=== PATIENT | male | born 1985 | race Two or more races ===

== ENCOUNTER 2023-11-02 12:27 | Inpatient (IN) | payer MEDICAID ==
[~2023-11-02] VITALS: Ht 170.2 cm; Wt 77.3 kg
[2023-11-02 13:17] LABS: BASOPHILS % (AUTO) 0.2 % (0.0-2.0); EOSINOPHILS % (AUTO) 0.3 % (1.0-6.0); HEMATOCRIT 43.4 % (41-53); LYMPHOCYTES # (AUTO) 1.5 K/uL (1.0-4.8); LYMPHOCYTES % (AUTO) 19.4 % (22.0-44.0); MEAN CORPUSCULAR HEMOGLOBIN 32.3 pg (26.0-34.0); MEAN CORPUSCULAR HGB CONC 34.5 G/dL (31.0-37.0); MEAN CORPUSCULAR VOLUME 94 fL (80-100); MONOCYTES # (AUTO) 0.6 K/uL (0.1-1.0); MONOCYTES % (AUTO) 7.4 % (2.0-9.0); NEUTROPHILS # (AUTO) 5.6 K/uL (1.8-7.7); NEUTROPHILS % (AUTO) 72.7 % (40.0-70.0); PLATELET COUNT (AUTO) 117 K/uL (150-450); RED BLOOD CELL COUNT(AUTO) 4.64 MIL/uL (4.50-5.90); RED CELL DISTRIBUTION WIDTH 13.4 % (11.5-14.5); WHITE BLOOD COUNT (AUTO) 7.7 K/uL (4.5-11.0)
[2023-11-02 13:27] LABS: ALCOHOL, BLOOD (SERUM) < 3 mg/dL (0-10)
[2023-11-02 13:33] LABS: ALANINE AMINOTRANSFERASE 102 U/L (12-78); ALBUMIN 4.6 g/dL (3.4-5.0); ALKALINE PHOSPHATASE 119 U/L (46-116); ANION GAP 9 mmol/L (8-16); ASPARTATE AMINOTRANSFERASE 69 U/L (15-37); BILIRUBIN,TOTAL 1.5 mg/dL (0.1-1.0); CALCIUM, TOTAL 9.2 mg/dL (8.8-10.5); CARBON DIOXIDE 32 mmol/L (22-29); CHLORIDE 90 mmol/L (98-107); GLOMERULAR FILTR. RATE CALC > 60 mL/min (>60); GLUCOSE,RANDOM 114 mg/dL (70-110); SODIUM SERUM 131 mmol/L (136-145); UREA NITROGEN, BLOOD 6 mg/dL (7-18)
[2023-11-02 13:34] LABS: POTASSIUM 2.8 mmol/L (3.5-5.1)
[2023-11-02] MEDS: POTASSIUM CHL 10 MEQ/WATER 50 ML IV SCH (13:56)
[2023-11-02] MEDS: POTASSIUM CHLORIDE 10% 40 MEQ/30 ML LIQUID UDCUP PO ONE (13:56)
[2023-11-02] MEDS: MAGNESIUM SULFATE 2 GM/WATER 50 ML IV ONE (14:25)
[2023-11-02] MEDS: ONDANSETRON HCL 4 MG/2 ML VIAL IVP ONE (14:25)
[2023-11-02] MEDS: ChlordiazePOXIDE HCL 25 MG CAPSULE PO ONE (14:47)
[2023-11-02] MEDS: PROCHLORPERAZINE EDISYLATE 5 MG/ML 2 ML VIAL IVP ONE (14:47)
[2023-11-02] MEDS: RINGERS SOLUTION,LACTATED 1,000 ML IV ONE (14:47)
[2023-11-02] MEDS ORDERED: MAGNESIUM HYDROXIDE SUSPENSION 30 ML UDCUP PO PRN (15:30)
[2023-11-02] MEDS ORDERED: POTASSIUM CHL 10 MEQ/WATER 50 ML IV PRN (15:30)
[2023-11-02] MEDS ORDERED: POTASSIUM CHLORIDE 20 MEQ ER TABLET PO PRN (15:30)
[2023-11-02] MEDS ORDERED: ACETAMINOPHEN 325 MG TABLET PO PRN (15:30)
[2023-11-02] MEDS ORDERED: MAGNESIUM OXIDE 400 MG TABLET PO PRN (15:30)
[2023-11-02] MEDS ORDERED: ONDANSETRON HCL 4 MG/2 ML VIAL IVP PRN (15:30)
[2023-11-02] MEDS ORDERED: MAGNESIUM SULFATE 2 GM/WATER 50 ML IV PRN (15:30)
[2023-11-02] MEDS ORDERED: MAGNESIUM SULFATE 4 GM/WATER 100 ML IV PRN (15:30)
[2023-11-02 15:45] LABS: ALBUMIN 3.9 g/dL (3.4-5.0)
[2023-11-02] MEDS: MAGNESIUM SULFATE 2 GM, MVI, ADULT NO.1 WITH VIT K 10 ML, THIAMINE 100 MG, FOLIC ACID 1... IV ONE (15:51)
[2023-11-02 18:41] VITALS: BP 120/70; PULSE 73; RESP 18; TEMP 98.2
[2023-11-02 19:26] VITALS: BP 126/77; PULSE 101; RESP 18; TEMP 98.9
[2023-11-02] MEDS: LORazepam 2 MG/ML VIAL IVP PRN (23:07)
[2023-11-02 23:49] VITALS: BP 129/85; PULSE 85; RESP 18; TEMP 98.3
[2023-11-03] MEDS: 1: MAGNESIUM SULFATE 2 GM, MVI, ADULT NO.1 WITH VIT K 10 ML, THIAMINE 100 MG, FOLIC ACID IV SCH (02:12)
[2023-11-03 06:24] LABS: ANION GAP 7 mmol/L (8-16); CARBON DIOXIDE 30 mmol/L (22-29); CHLORIDE 101 mmol/L (98-107); GLOMERULAR FILTR. RATE CALC > 60 mL/min (>60); GLUCOSE,RANDOM 94 mg/dL (70-110); POTASSIUM 3.5 mmol/L (3.5-5.1); SODIUM SERUM 138 mmol/L (136-145); UREA NITROGEN, BLOOD 2 mg/dL (7-18)
[2023-11-03 07:43] VITALS: BP 121/81; PULSE 76; RESP 19; TEMP 98.5
[2023-11-03] MEDS: PANTOPRAZOLE SODIUM 40 MG/VIAL IVP SCH (07:59)
[2023-11-03 10:48] VITALS: BP 120/85; PULSE 67; RESP 18; TEMP 98.3
[2023-11-03 15:10] VITALS: BP 117/76; PULSE 84; RESP 18; TEMP 98.2
[2023-11-04 00:58] VITALS: BP 118/74; PULSE 89; RESP 18; TEMP 98.4
[2023-11-04 04:55] VITALS: BP 127/56; PULSE 78; RESP 19; TEMP 97.9
[2023-11-04 07:26] VITALS: BP 128/67; PULSE 72; RESP 18; TEMP 98.2
[2023-11-04] MEDS: MULTIVITAMINS WITH MINERALS, THERAPEUTIC TABLET PO SCH (08:11)
[2023-11-04 11:37] VITALS: BP 144/78; PULSE 79; RESP 18; TEMP 97.8
[2023-11-04 15:05] VITALS: BP 151/80; PULSE 76; RESP 18; TEMP 98.2
== END 2023-11-04 18:30 | disposition home or self-care (01) | DRG 280 ==
LOC: EMS 12:27 → UNDOADMIN 15:21 → EDH 15:21 → 5N 17:30
PROVIDERS: ADMIT Internal Medicine; ATTEND Internal Medicine
DX: K70.9 Alcoholic liver disease, unspecified (principal); E83.42 Hypomagnesemia; F10.139 Alcohol abuse with withdrawal, unspecified; E87.6 Hypokalemia; F41.1 Generalized anxiety disorder; F10.129 Alcohol abuse with intoxication, unspecified; Y90.0 Blood alcohol level of less than 20 mg/100 ml; Z59.00 Homelessness unspecified; Z79.899 Other long term (current) drug therapy
CPT/HCPCS: 80048; 80076; 82040; 83690; 83735; 85025; 93005; 99285; C9113; G0480; J0780; J2060; J2405; J3411; J3475; J3480; J3490; J7030; J7120